=== PATIENT | male | born 1985 | race American Indian/Alaskan Native ===

== ENCOUNTER 2017-06-04 16:57 | Emergency (ER) | payer SELFPAY ==
[2017-06-04 17:11] VITALS: BP 147/81
== END 2017-06-05 07:44 | disposition left against medical advice (07) ==
LOC: ED 16:57
DX: Z53.21 Procedure and treatment not carried out due to patient leaving prior to being seen by health care provider (principal)

== ENCOUNTER 2017-07-16 13:30 | Emergency (ER) | payer SELFPAY ==
[2017-07-16 13:32] VITALS: BP 138/81
[2017-07-16] MEDS ORDERED: TORADOL IM ONE (13:47)
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
== END 2017-07-16 14:07 | disposition home or self-care (01) ==
LOC: ED 13:30
DX: K02.9 Dental caries, unspecified (principal); K05.10 Chronic gingivitis, plaque induced; F17.200 Nicotine dependence, unspecified, uncomplicated; Z91.018 Allergy to other foods
CPT/HCPCS: 96372; 99282; J1885